=== PATIENT | male | born 1965 ===

== ENCOUNTER 2018-11-21 13:44 | Emergency (ER) | payer OTHER ==
[2018-11-21 13:52] VITALS: PULSE 71
[2018-11-21 13:53] VITALS: BMI 27.4
--- NOTE | 2018-11-21 14:31 | ED PDOC ---
Lower Extremity Pain/Injury Time Seen by Provider: 11/21/18 14:09 Chief Complaint (Nursing): Lower Extremity Problem/Injury Chief Complaint (Provider): Lower Extremity Problem/Injury History Per: Patient History/Exam Limitations: no limitations Onset/Duration Of Symptoms: Days (x2 weeks) Current Symptoms Are (Timing): Still Present Additional Complaint(s): 53 year old male presents to the ED with left knee pain which started gradually 2 weeks ago. Patient reports pain is worse with walking and bearing weight. He has been seeing an Orthopedist in the [place], Dr. Corbett. Patient was sent to physical therapy but notes no improvement in pain. He denies taking any oral medication but does apply an ointment. Patient states pain worsened today while he was visiting his sister, prompting ED visit. PMD: none provided Past Medical History Reviewed: Historical Data, Nursing Documentation, Vital Signs Vital Signs: Last Vital Signs Temp 98.1 F 11/21/18 13:50 Pulse 71 11/21/18 13:50 Resp 17 11/21/18 13:50 BP 168/83 H 11/21/18 13:50 Pulse Ox 98 11/21/18 13:52 - Family History Family History: States: Unknown Family Hx - Home Medications Home Medications: Ambulatory Orders Medication Instructions Recorded Meloxicam [Mobic] 7.5 mg PO BID PRN #14 tab 11/21/18 - Allergies Allergies/Adverse Reactions: Allergies Allergy/AdvReac Type Severity Reaction Status Date / Time No Known Allergies Allergy Verified 11/21/18 13:51 Review of Systems ROS Statement: Except As Marked, All Systems Reviewed And Found Negative Musculoskeletal: Positive for: Other (left knee pain) Physical Exam - Reviewed Nursing Documentation Reviewed: Yes Vital Signs Reviewed: Yes - Physical Exam Appears: Positive for: No Acute Distress Skin: Positive for: Normal Color, Warm, Dry Eye Exam: Positive for: Normal appearance Extremity: Positive for: Other (Left knee: no effusion, mild erythema on surface of skin) Neurological/Psych: Positive for: Awake, Alert, Oriented - Laboratory Results Result Diagrams: 11/21/18 15:00 11/21/18 15:00 - ECG O2 Sat by Pulse Oximetry: 98 (RA) Pulse Ox Interpretation: Normal - Progress ED Course And Treament: TORADOL 15 MG IV X DOSE CT KNEE: MILD OSTEOARTHRITIC CHANGES. SMALL KNEE JOINT EFFUSION COMPATIBLE WITH BURSITIS CHRONIC CHANGES NO ACUTE OSSOEOUS ABNORMALITY GIVEN KNEE IMMOBILIZER Medical Decision Making Medical Decision Making: Time: 140 Plan: --VBG --CMP --C reactive protein --Uric acid --CBC --sed rate --Left knee XR --Blood culture Time: 153 Left knee XR: FINDINGS: BONES: No acute fracture. JOINTS: Unremarkable. JOINT EFFUSION: None. OTHER FINDINGS: Quadriceps tendon insertional enthesophyte IMPRESSION: No demonstrated fracture or dislocation. Time: 1649 --Patient was reevaluated with Dr. Herrera at bedside. Will order CT for bursitis vs cellulitis Time: 1904 EXAM: CT left Knee, with IV contrast CLINICAL HISTORY: Bursitis vs cellulitis TECHNIQUE: Axial images were acquired through the left knee with IV contrast. Reformatted images were reviewed. 335.91 mGy-cm COMPARISON: None provided. FINDINGS: BONES: No acute fracture or aggressive appearing osseous lesion. JOINTS: Mild osteoarthritic change present with a mild narrowing medial joint compar tment of the knee and mild narrowing of the patellofemoral joint space. There is mild bony spurring at the superior aspect of the patella with thickening of the quadriceps tendon and infrapatellar ligament. SOFT TISSUES: Small knee joint effusion is present. There is no distinct abscess or mass. IMPRESSION: Mild osteoarthritic changes. Small knee joint effusion compatible with bursitis. Chronic changes. No acute osseous abnormality. Electronically signed on Nov 21, 2018 7:05:59 PM EDT by: Pawel Bello M.D., Certified by [employer], Diagnostic Radiology Scribe Attestation: Documented by Claudia Ny acting as a scribe for Darnell Huang PA-C. Provider Scribe Attestation: All medical record entries made by the Scribe were at my direction and personally dictated by me. I have reviewed the chart and agree that the record accurately reflects my personal performance of the history, physical exam, medical decision making, and the department course for this patient. I have also personally directed, reviewed, and agree with the discharge instructions and disposition. Disposition - Clinical Impression Clinical Impression: Bursitis of left knee - Patient ED Disposition Is Patient to be Admitted: No - Disposition Referrals: Kelli Root MD [Staff Provider] - Disposition: Routine/Home Disposition Time: 19:20 Condition: FAIR Prescriptions: Meloxicam [Mobic] 7.5 mg PO BID PRN #14 tab PRN Reason: Pain, Severe (8-10) Instructions: Bursitis
--- NOTE | 2018-11-21 15:34 | RAD ---
Date of service: 11/21/2018 PROCEDURE: Left Knee Radiographs. HISTORY: Pain. COMPARISON: None. TECHNIQUE: 2 views obtained. FINDINGS: BONES: No acute fracture. JOINTS: Unremarkable. JOINT EFFUSION: None. OTHER FINDINGS: Quadriceps tendon insertional enthesophyte IMPRESSION: No demonstrated fracture or dislocation.
[2018-11-21 15:36] LABS: VENOUS BLOOD GAS BASE EXCESS 2.2 mmol/L (0.0-2.0); VENOUS BLOOD GAS PCO2 43 mmHg (40-60); VENOUS BLOOD GAS PO2 47 mm/Hg (30-55); VENOUS BLOOD PH 7.41 (7.32-7.43)
[2018-11-21 15:39] LABS: BASO % 0.5 % (0.0-2.0); EOS # 0.2 K/uL (0.0-0.7); EOS % 2.1 % (0.0-4.0); HEMOGLOBIN 13.3 g/dL (12.0-18.0); LYMPH # 1.7 K/uL (1.0-4.3); LYMPH % 18.3 % (20.0-40.0); MEAN CORPUSCULAR HGB CONC 34.1 g/dL (33.0-37.0); MEAN PLATELET VOLUME 9.1 fl (7.2-11.7); MONO # 0.7 K/uL (0.0-0.8); MONO % 7.6 % (0.0-10.0); NEUT # 6.7 K/uL (1.8-7.0); NEUT % 71.5 % (50.0-75.0); RBC 4.76 Mil/uL (4.40-5.90); RED CELL DISTRIBUTION WIDTH 13.5 % (11.5-14.5); WHITE BLOOD COUNT 9.4 K/uL (4.8-10.8)
[2018-11-21 15:49] LABS: ALB/GLOB RATIO 1.3 (1.0-2.1); ALBUMIN 4.2 g/dL (3.5-5.0); ALT/SGPT 39 U/L (21-72); AST/SGOT 31 U/L (17-59); BLOOD UREA NITROGEN 22 mg/dl (9-20); CALCIUM 9.5 mg/dL (8.4-10.2); GFR NON-AFRICAN AMERICAN > 60; URIC ACID 6.9 mg/Dl (3.5-8.5)
[2018-11-21] MEDS ORDERED: Sodium Chloride 0.9% 50 ML IV ONE (18:17)
[2018-11-21] MEDS ORDERED: Iohexol 300 100 ML IJ ONE (18:17)
[2018-11-21 20:31] VITALS: BP 148/78; RESP 16; TEMP 98; O2SAT 99
--- NOTE | 2018-11-22 09:56 | CT ---
Date of service: 11/21/2018 PROCEDURE: CT of the Left knee. HISTORY: EVALUATE BURSITIS VS CELLULITIS COMPARISON: None available. TECHNIQUE: Contiguous axial images of the left knee were obtained. Coronal and sagittal reformats were generated. IV contrast: 90 mL Omnipaque 300 Radiation dose: Total exam DLP = 335.91 mGy-cm. This CT exam was performed using one or more of the following dose reduction techniques: Automated exposure control, adjustment of the mA and/or kV according to patient size, and/or use of iterative reconstruction technique. FINDINGS: BONES: Unremarkable. No fracture or focal lesion. SOFT TISSUES: Prepatellar bursitis. Small suprapatellar joint effusion. IMPRESSION: Prepatellar bursitis. Small suprapatellar joint effusion.
== END 2018-11-21 20:32 | disposition home or self-care (01) ==
LOC: H.ER 13:44
DX: M70.52 Other bursitis of knee, left knee (principal)
CPT/HCPCS: 73562; 73701; 80053; 82803; 84550; 85025; 85651; 86140; 87040; 96374; 99284; J1885; Q9967